=== PATIENT | female | born 1930 | race African-American/Black ===

== ENCOUNTER 2017-03-28 16:47 | Emergency (ER) | payer MEDICARE ==
[~2017-03-28] VITALS: Ht 154.9 cm; Wt 60.0 kg
[~2017-03-28 16:47] MED LIST: AMLO5TAB4 PO; BENA40TA3 PO; METO-396 PO; MINO2.5T19 PO
[2017-03-28 18:35] LABS: CLARITY URINE CLEAR (CLEAR); COLOR URINE YELLOW (YELLOW); KETONES URINE TRACE (NEGATIVE); LEUKOCYTE ESTERASE URINE TRACE (NEGATIVE); NITRITE URINE NEGATIVE (NEGATIVE); OCCULT BLOOD URINE NEGATIVE (NEGATIVE); PROTEIN URINE TRACE (NEGATIVE); SPECIFIC GRAVITY URINE 1.013 (1.005-1.030); UROBILINOGEN URINE 0.2 E.U./dL (0.2-1.0)
[2017-03-28 19:10] LABS: BASOPHILS % 0.5 % (0.0-2.0); EOSINOPHILS % 0.3 % (0.0-5.0); HEMATOCRIT. 39.7 % (36.0-48.0); LYMPHOCYTES % 9.9 % (20.0-50.0); MEAN CORPUSCULAR HEMOGLOBIN 25.8 pg (28.0-32.0); MEAN CORPUSCULAR VOLUME 78.7 fL (81.0-99.0); MEAN PLATELET VOLUME 8.2 fl (7.4-10.4); MONOCYTES % 11.4 % (2.0-8.0); NEUTROPHILS % 77.9 % (40.0-76.0); PLATELET 187 x1000/uL (130-400); RED BLOOD CELL COUNT 5.04 mill/uL (4.2-5.4); RED CELL DISTRIBUTION WIDTH 14.5 % (11.6-14.6)
[2017-03-28 19:14] LABS: PROTHROMBIN TIME 10.6 sec (9.4-11.6)
[2017-03-28 19:22] LABS: CARBON DIOXIDE 25 mEq/L (21-32); CHLORIDE 104 mEq/L (98-107); TROPONIN I < 0.02 ng/mL (0.00-0.04)
[2017-03-28] MEDS ORDERED: GUAIFENESIN/CODEINE 200-20MG/10ML UDC PO ONE (22:00)
[2017-03-28 22:09] VITALS: BP 155/70
== END 2017-03-28 22:12 | disposition home or self-care (01) ==
LOC: ER 17:23
DX: R05 Cough (principal); E11.9 Type 2 diabetes mellitus without complications; R79.1 Abnormal coagulation profile; I10 Essential (primary) hypertension; Z98.51 Tubal ligation status; Z88.6 Allergy status to analgesic agent
CPT/HCPCS: 36415; 71045; 80053; 81001; 83605; 83880; 84484; 85025; 85610; 87040; 93005; 99285

== ENCOUNTER 2017-04-08 06:47 | Emergency (ER) | payer MEDICARE ==
[~2017-04-08] VITALS: Ht 162.6 cm; Wt 75.0 kg
[~2017-04-08 06:47] MED LIST changes: -BENA40TA3 PO; +BENA40TA9 PO
[2017-04-08] MEDS ORDERED: IPRATROPIUM BROMIDE (0.02%) 0.5MG/2.5ML NEB HHN STA (07:22)
[2017-04-08] MEDS ORDERED: ALBUTEROL (0.083%) 2.5MG/3ML NEB HHN STA (07:22)
[2017-04-08] MEDS ORDERED: METHYLPREDNISOLONE SOD SUCC 125 MG/2 ML VIAL IV ONE (08:15)
[2017-04-08 08:28] LABS: BASOPHILS % 0.6 % (0.0-2.0); EOSINOPHILS % 5.3 % (0.0-5.0); HEMATOCRIT. 39.6 % (36.0-48.0); HEMOGLOBIN. 12.9 g/dL (12.0-16.0); LYMPHOCYTES % 22.7 % (20.0-50.0); MEAN CORPUSCULAR HEMOGLOBIN 25.3 pg (28.0-32.0); MEAN CORPUSCULAR VOLUME 77.8 fL (81.0-99.0); MEAN PLATELET VOLUME 7.8 fl (7.4-10.4); MONOCYTES % 14.3 % (2.0-8.0); NEUTROPHILS % 57.1 % (40.0-76.0); PLATELET 294 x1000/uL (130-400); RED CELL DISTRIBUTION WIDTH 14.2 % (11.6-14.6)
[2017-04-08 08:30] LABS: PROTHROMBIN TIME 10.4 sec (9.4-11.6)
[2017-04-08 08:42] LABS: CHLORIDE 104 mEq/L (98-107)
[2017-04-08 11:59] VITALS: BP 145/60
== END 2017-04-08 12:01 | disposition home or self-care (01) ==
LOC: ER 06:47
DX: J45.901 Unspecified asthma with (acute) exacerbation (principal); I13.0 Hypertensive heart and chronic kidney disease with heart failure and stage 1 through stage 4 chronic kidney disease, or unspecified chronic kidney disease; I50.9 Heart failure, unspecified; E11.22 Type 2 diabetes mellitus with diabetic chronic kidney disease; N18.9 Chronic kidney disease, unspecified; I49.1 Atrial premature depolarization; Z87.891 Personal history of nicotine dependence
CPT/HCPCS: 36415; 71045; 80053; 83605; 83690; 83880; 84484; 85025; 85610; 87040; 87804; 93005; 94640; 96374; 99285; J2930; J7611